=== PATIENT | female | born 1995 | race Caucasian/White ===

== ENCOUNTER 2017-01-21 14:57 | Observation (INO) | payer OTHER ==
[2017-01-21 15:33] LABS: COLOR YELLOW; LEUKOCYTE ESTERASE,URINE 3+ (NEGATIVE); NITRITE,URINE NEGATIVE (NEGATIVE)
[2017-01-21 15:41] LABS: AMORPHOUS PRESENT /hpf (NONE-1+); BACTERIA 2+ /hpf (NONE SEEN); MUCUS 2+ /lpf (NONE-1+)
[2017-01-21 16:34] LABS: % IMMATURE GRANULYOCYTES 0.3 % (0.0-1.1); ABSOLUTE IMMATURE GRANULOCYTES 0.02 10^3/uL (0.00-0.10); ADD DIFF? NO; ADD MORPH? NO; ADD SCAN? NO; ATYPICAL LYMPHOCYTE FLAG 20 (0-99); FRAGMENT RBC FLAG 0 (0-99); HEMATOCRIT 39.4 % (38.0-47.0); HEMOGLOBIN 12.8 g/dL (12.6-16.3); LEFT SHIFT FLG 0 (0-99); LIPEMIA HEMOLYSIS FLAG 80 (0-99); MEAN CELL HEMOGLOBIN CONCENTR. 32.5 g/dL (32.4-36.7); MEAN CELL VOLUME 77.1 fL (81.5-99.8); MEAN PLATELET VOLUME 9.8 fL (8.7-11.7); PLATELET CLUMPS FLAG 20 (0-99); PLATELET COUNT 343 10^3/uL (150-400); RED BLOOD CELL COUNT 5.11 10^6/uL (4.18-5.33); RED CELL DISTRIBUTION WIDTH 15.9 % (11.5-15.2)
[2017-01-21 16:43] LABS: ANION GAP 15 mEq/L (8-16); CALCIUM 10.2 mg/dL (8.5-10.4); CARBON DIOXIDE 23 mEq/l (22-31); CHLORIDE 105 mEq/L (97-110); CREATININE 0.9 mg/dL (0.6-1.0); GLOMERULAR FILTRATION RATE > 60; GLUCOSE 85 mg/dL (70-100); POTASSIUM 3.9 mEq/L (3.5-5.2); SODIUM 143 mEq/L (134-144)
[2017-01-21] MEDS ORDERED: methylPREDNISolone SOD SUCC 125 MG/2 ML VIAL IVP ONE (16:47)
[2017-01-21] MEDS ORDERED: IOPAMIDOL (ISOVUE-300) 100 ML BTL ONE (17:34)
--- NOTE | 2017-01-21 17:39 | EDPHY ---
H & P Smoking Status: Never smoked Time Seen by Provider: 01/21/17 15:31 HPI/ROS: CHIEF COMPLAINT: Abdominal pain HISTORY OF PRESENT ILLNESS: 21-year-old female presents to the emergency department with abdominal pain. The patient was a woken out of her sleep at 4: 00 a.m. 2 days ago. She states that she had generalized abdominal pain and now over the last 24-48 hours it has been more localized in her right lower quadrant. She has never had pain like this in the past. No flank pain. No urinary symptoms. No chest pain or difficulty breathing. No fevers or chills. No reported trauma. REVIEW OF SYSTEMS: Constitutional: No fever, no chills. Eyes: No double or blurry vision. ENT: No sore throat. Respiratory: No cough, no shortness of breath. Cardiac: No chest pain. Gastrointestinal: Abdominal pain as above. No vomiting or diarrhea. Genitourinary: No dysuria. Musculoskeletal: No neck or back pain. Skin: No rashes. Neurological: No headache. (Radha Fox) Past Medical/Surgical History: Negative (Radha Fox) Social History: Single (Radha Fox) Physical Exam: General Appearance: Alert, no distress. Eyes: Pupils equal and round. Extraocular motions are all intact. ENT: Mouth: Mucous membranes moist. Respiratory: No wheezing, rhonchi, or rales, lungs are clear to auscultation. Cardiovascular: Regular rate and rhythm. Gastrointestinal: Abdomen is soft. Tenderness with palpation in the right lower quadrant. There is no rebound, guarding or masses noted. No CVA tenderness bilaterally. Neurological: Alert and oriented x 3, cranial nerves II through XII grossly intact Skin: Warm and dry, no rashes. Musculoskeletal: Nontender to palpate along the cervical, thoracic or lumbar spine. Neck is supple. Extremities: Full range of motion and no peripheral edema. Psychiatric: Patient is oriented X 3, there is no agitation. (Radha Fox) Constitutional: Initial Vital Signs Temperature (C) 37 C 01/21/17 15:10 Heart Rate 97 01/21/17 15:10 Respiratory Rate 18 01/21/17 15:10 Blood Pressure 140/87 H 01/21/17 15:10 O2 Sat (%) 97 01/21/17 15:10 O2 Delivery Mode Room Air Allergies/Adverse Reactions: bacitracin [From Neosporin ([id number])] Allergy (Verified 01/21/17 15:09) cefixime [From Suprax] Allergy (Verified 01/21/17 15:09) cefprozil [From Cefzil] Allergy (Verified 01/21/17 15:09) clarithromycin [From Biaxin] Allergy (Verified 01/21/17 15:09) neomycin [From Neosporin ([id number])] Allergy (Verified 01/21/17 15:09) Penicillins Allergy (Verified 01/21/17 15:09) polymyxin B [From Neosporin ([id number])] Allergy (Verified 01/21/17 15:09) shellfish derived Allergy (Verified 01/21/17 15:09) sulfacetamide [From Sulfamide] Allergy (Verified 01/21/17 15:09) Home Medications: Medication Instructions Recorded Control 01/21/17 Zyrtec 01/21/17 Medical Decision Making - Diagnostics Imaging Results: Imaging Impressions Abdomen CT 01/21/17 17:29 Impression: Acute appendicitis. Results called to Dr. De Dios at 6:00 PM. ED Course/Re-evaluation: 21-year-old female presents to the emergency department by private vehicle with abdominal pain. The patient has pain overlying McBurney's point. Is concerned about possible acute appendicitis. I doubt ovarian cysts or ovarian torsion. Patient takes oral contraceptive pills. Her pain is not in her lower pelvic region. I discussed pros and cons of CT scan versus ultrasound she agrees with CT scan. CT scan of the abdomen pelvis pending. Patient has numerous medication allergies. She requested premedication with Benadryl and steroids prior to IV contrast. She has a history of shellfish allergy. I spoke with Dr. Hudson Crystal, radiologist, as well who stated that her shellfish allergy is not statistically significant with respect to contrast dye. Patient was given 50 mg of IV Benadryl and 125 mg of IV Solu-Medrol and waited 30 min prior to having CT scan with IV contrast. CT scan reveals acute appendicitis. I spoke with Dr. Yovany Hamilton, on-call surgeon, who also came to evaluate the patient. Patient was kept NPO. Dr. Hamilton will discuss using IV Invanz with the patient given her numerous allergies. (Juliette Foxrina Marianne) Patient has been seen by Dr. Hamilton. She was given Benadryl and Solu-Medrol prior to her CT scan because of IV contrast. The patient has numerous medication allergies however they really cause rash not anaphylaxis. She had no problems with the CT scan and IV contrast after the Benadryl and steroids. We will give her Invanz is antibiotic. She will then go to the operating room for appendectomy (Dev De Dios) Differential Diagnosis: Including but not limited to acute appendicitis, urinary tract infection, pyelonephritis, kidney stone (Radha Fox) I considered appendicitis as well as other causes of right lower quadrant pain including ovarian cyst, , urinary tract infection. I have also considered patient may have significant allergic reaction IV contrast as as antibiotics. However she has been treated with Benadryl and Solu-Medrol. ( Dev De Dios) - Data Points Laboratory Results: Laboratory Results 01/21/17 15:45 01/21/17 15:45 01/21/17 01/21/17 01/21/17 15:45 15:45 15:15 WBC 7.82 10^3/uL 10^3/uL (3.80-9.50) RBC 5.11 10^6/uL 10^6/uL (4.18-5.33) Hgb 12.8 g/dL g/dL (12.6-16.3) Hct 39.4 % % (38.0-47.0) MCV 77.1 fL L fL (81.5-99.8) MCH 25.0 pg L pg (27.9-34.1) MCHC 32.5 g/dL g/dL (32.4-36.7) RDW 15.9 % H % (11.5-15.2) Plt Count 343 10^3/uL 10^3/uL (150-400) MPV 9.8 fL fL (8.7-11.7) Neut % (Auto) 60.9 % % (39.3-74.2) Lymph % (Auto) 31.3 % % (15.0-45.0) [place] % (Auto) 6.5 % % (4.5-13.0) Eos % (Auto) 0.6 % % (0.6-7.6) Baso % (Auto) 0.4 % % (0.3-1.7) Nucleat RBC Rel Count 0.0 % % (0.0-0.2) Absolute Neuts (auto) 4.76 10^3/uL 10^3/uL (1.70-6.50) Absolute Lymphs (auto) 2.45 10^3/uL 10^3/uL (1.00-3.00) Absolute Monos (auto) 0.51 10^3/uL 10^3/uL (0.30-0.80) Absolute Eos (auto) 0.05 10^3/uL 10^3/uL (0.03-0.40) Absolute Basos (auto) 0.03 10^3/uL 10^3/uL (0.02-0.10) Absolute Nucleated RBC 0.00 10^3/uL 10^3/uL (0-0.01) Immature Gran % 0.3 % % (0.0-1.1) Immature Gran # 0.02 10^3/uL 10^3/uL (0.00-0.10) Sodium 143 mEq/L mEq/L (134-144) Potassium 3.9 mEq/L mEq/L (3.5-5.2) Chloride 105 mEq/L mEq/L (97-110) Carbon Dioxide 23 mEq/l mEq/l (22-31) Anion Gap 15 mEq/L mEq/L (8-16) BUN 11 mg/dL mg/dL (7-23) Creatinine 0.9 mg/dL mg/dL (0.6-1.0) Estimated GFR > 60 Glucose 85 mg/dL mg/dL (70-100) Calcium 10.2 mg/dL mg/dL (8.5-10.4) Urine Color YELLOW Urine Appearance TURBID Urine pH 9.0 H (5.0-7.5) Ur Specific [place] 1.020 (1.002-1.030) Urine Protein 1+ H (NEGATIVE) Urine Ketones NEGATIVE (NEGATIVE) Urine Blood NEGATIVE (NEGATIVE) Urine Nitrate NEGATIVE (NEGATIVE) Urine Bilirubin NEGATIVE (NEGATIVE) Urine Urobilinogen NEGATIVE EU EU (0.2-1.0) Ur Leukocyte Esterase 3+ H (NEGATIVE) Urine RBC 1-3 /hpf /hpf (0-3) Urine WBC 10-15 /hpf H /hpf (0-3) Ur Epithelial Cells 2+ /lpf H /lpf (NONE-1+) Amorphous Sediment PRESENT /hpf /hpf (NONE-1+) Urine Bacteria 2+ /hpf H /hpf (NONE SEEN) Hyaline Casts 5-15 /lpf /lpf (0-1) Urine Mucus 2+ /lpf H /lpf (NONE-1+) Urine Glucose NEGATIVE (NEGATIVE) Urine Test 01/21/17 15:10 WBC RBC Hgb Hct MCV MCH MCHC RDW Plt Count MPV Neut % (Auto) Lymph % (Auto) [place] % (Auto) Eos % (Auto) Baso % (Auto) Nucleat RBC Rel Count Absolute Neuts (auto) Absolute Lymphs (auto) Absolute Monos (auto) Absolute Eos (auto) Absolute Basos (auto) Absolute Nucleated RBC Immature Gran % Immature Gran # Sodium Potassium Chloride Carbon Dioxide Anion Gap BUN Creatinine Estimated GFR Glucose Calcium Urine Color Urine Appearance Urine pH Ur Specific [place] Urine Protein Urine Ketones Urine Blood Urine Nitrate Urine Bilirubin Urine Urobilinogen Ur Leukocyte Esterase Urine RBC Urine WBC Ur Epithelial Cells Amorphous Sediment Urine Bacteria Hyaline Casts Urine Mucus Urine Glucose Urine Test NEGATIVE Medications Given: Discontinued Medications Diphenhydramine HCl (Benadryl Injection) 50 mg IVP EDNOW ONE Stop: 01/21/17 16:44 Last Admin: 01/21/17 16:52 Dose: 50 mg Sodium Chloride (Ns) 1,000 mls @ 0 mls/hr IV ONCE ONE PRN Reason: Wide Open Stop: 01/21/17 18:14 Last Admin: 01/21/17 18:22 Dose: 1,000 mls Methylprednisolone Sodium Succinate (Solu-Medrol) 125 mg IVP EDNOW ONE Stop: 01/21/17 16:48 Last Admin: 01/21/17 16:58 Dose: 125 mg Departure - Departure Disposition: To OP Cath/Surgery Clinical Impression: Acute appendicitis Qualifiers: Acute appendicitis type: with localized peritonitis Qualified Code(s): K35.3 - Acute appendicitis with localized peritonitis Condition: Good
[2017-01-21] MEDS ORDERED: NS 1,000 ML IV ONE (18:13)
[2017-01-21] MEDS ORDERED: ERTAPENEM 1 GM VIAL IVP ONE (19:09)
--- NOTE | 2017-01-21 19:52 | PDANEPAE ---
ANE History of Present Illness 21 yo female with abd pain since this AM. ANE Past Medical History - Cardiovascular History Hx Hypertension: No Hx Arrhythmias: No - Pulmonary History Hx COPD: No Hx Asthma/Reactive Airway Disease: No Hx Recent Upper Respiratory Infection: No Hx Oxygen in Use at Home: No Hx Sleep Apnea: No - Endocrine History Hx Diabetes: No Hypothyroid: No Obesity: no - Renal History Hx Renal Disorders: No - Liver History Hx Hepatic Disorders: No - GI History Hx Gastrointestinal Disorders: No ANE Review of Systems Review of systems is: negative Review of Systems: - Systems Respiratory: Reports: no symptoms Gastrointestinal: Reports: abdominal pain, diarrhea ANE Patient History - Allergies Allergies/Adverse Reactions: bacitracin [From Neosporin ([id number])] Allergy (Verified 01/21/17 15:09) cefixime [From Suprax] Allergy (Verified 01/21/17 15:09) cefprozil [From Cefzil] Allergy (Verified 01/21/17 15:09) clarithromycin [From Biaxin] Allergy (Verified 01/21/17 15:09) neomycin [From Neosporin ([id number]-[id number])] Allergy (Verified 01/21/17 15:09) Penicillins Allergy (Verified 01/21/17 15:09) polymyxin B [From Neosporin ([id number]-obm-[id number])] Allergy (Verified 01/21/17 15:09) shellfish derived Allergy (Verified 01/21/17 15:09) sulfacetamide [From Sulfamide] Allergy (Verified 01/21/17 15:09) - Home Medications Home medications: home medication list seen and reviewed Home Medications: Cetirizine [ZyrTEC 10 mg (*)] 10 mg PO HS 01/21/17 [Last Taken 01/20/17 22:00] Ethinyl Estradiol/Drospirenone [Megan Tablet] 1 tab PO DAILY 01/21/17 [Last Taken 01/21/17] - NPO status NPO Since - Liquids (Date): 01/21/17 NPO Since - Liquids (Time): 10:30 NPO Since - Solids (Date): 01/21/17 NPO Since - Solids (Time): 10:30 - Anes Hx Anes Hx: post operative nausea and vomiting - Smoking Hx Smoking Status: Never smoked ANE Labs/Vital Signs - Labs Result Diagrams: 01/21/17 15:45 01/21/17 15:45 - Vital Signs Blood Pressure: 129/79 Heart Rate: 104 Respiratory Rate: 18 O2 Sat (%): 98 Height: 162.56 cm Weight: 67.132 kg ANE Physical Exam - Airway Neck exam: FROM Mallampati Score: Class 2 - Pulmonary Pulmonary: clear to auscultation - Cardiovascular Cardiovascular: systolic murmur, tachycardia - ASA Status ASA Status: II, E ANE Anesthesia Plan Anesthesia Plan: general endotracheal anesthesia
[2017-01-21] MEDS ORDERED: fentaNYL 100 MCG/2 ML INJ ONE ×2 (19:56→19:57)
[2017-01-21] MEDS ORDERED: PROPOFOL/EMULSION 500 MG/50 ML BOTTLE IV ONE (19:57)
--- NOTE | 2017-01-21 20:04 | GHP ---
[f rep st] PREOP HISTORY AND PHYSICAL DATE OF ADMISSION: 01/21/2017 ADMITTING DIAGNOSIS: Acute appendicitis. HISTORY OF PRESENT ILLNESS: The patient is a 21-year-old college student who had cereal for dinner on , and then at 4:00 a.m. Sunday morning had the onset of a bandlike abdominal pain that went across her upper abdomen and across her lower abdomen. This was augmented with nausea. She did have one soft stool at that point, but that did not change her abdominal discomfort. Later on Sunday morning, she had no appetite and did not eat. She had an uncomfortable day and then that night (Sunday) she was able to sleep. On Sunday, she was able to eat. Her pain was better. She was complaining of constipation. She was able to sleep last night. She was able to eat today and had diarrhea today, but the pain became increasingly worse. This prompted her visit to the emergency department. The pain had shifted to the right lower quadrant. She has not had a recent upper respiratory tract infection or diarrhea aside from today. She has had no prior abdominal surgery. She had one somewhat similar episode that lasted 3 hours several years ago. She did travel to [facility] in June. She did have Zithromax 2 months ago for a sore throat, which was strep test negative. It did lead to improvement of her oropharynx. There is no history of inflammatory bowel disease. PAST MEDICAL HISTORY: She does not use tobacco products. She drinks very rarely. ALLERGIES: To multiple antibiotics, the most important of which is sulfa. She has had a Grover Shahab type reaction to sulfa. She is allergic to other antibiotics, as manifested by a rash, and they include bacitracin, Suprax, Cefzil, Biaxin, bacitracin and polymyxin B. CURRENT MEDICATIONS: Include an oral contraceptive and Zyrtec for seasonal allergies. PAST SURGICAL HISTORY: Surgeries have included myringotomy tubes x2. She has had adenoids removed. She has had a breast reduction. She had an upper endoscopy in 2014 for what sounds like reflux. She has had wisdom tooth extraction. There is no history of rheumatic fever, tuberculosis, hepatitis, or transfusions. REVIEW OF SYSTEMS: She is lactose intolerant. She had a Medrol Dosepak in October and November of this year for hand swelling. There are no limits on her activities. PHYSICAL EXAMINATION: GENERAL: She is pleasant, awake, and alert. NEUROLOGIC: There are no focal lateralizing neurologic findings. LYMPH NODES: There is no cervical, supraclavicular, axillary or inguinal lymphadenopathy. NECK: Her thyroid is not enlarged. No carotid bruits. LUNGS: Clear to auscultation. CARDIAC: Shows S1, S2 to be normal with normal split of S2 without murmurs, rubs, or gallops. ABDOMEN: Shows hypoactive bowel sounds. Psoas and obturator signs are negative. She is tender with cough at about a 3 just below McBurney's point. To palpation on a scale of 1-10, her pain is 2 in the left upper quadrant, 5 in the left mid abdomen, 6 in the left lower quadrant, 2 in the epigastrium, 2 in the periumbilical region, 2 in the suprapubic region, 2 in the right upper quadrant, 5 in the right mid abdomen, and 8 in the left lower quadrant. VITAL SIGNS: Show a temperature of 36.4. Her blood pressure is 143/90, heart rate 108. LABORATORY DATA: Her white blood cell count is 7.8 with 60% neutrophils. She has a low mean corpuscular volume at 77. Her sodium is 143; potassium is 3.9; calcium is 102. Her urine test is negative. Her urine shows 10-15 white cells per high-power field. Her specific gravity is 1.020. Her CT certainly shows an appendix with a thickened wall, but minimal stranding is noted. PLAN: Options for her include antibiotic therapy. With her multiple reactions to antibiotics, a long course of antibiotics may be problematic. I feel the most straightforward answer will be to proceed with a laparoscopic appendectomy. I have discussed the pros and cons with the patient and her mother. They have agreed to proceed with an appendectomy. /[id number]/MODL MTDD
[2017-01-21] MEDS ORDERED: ONDANSETRON 4 MG/2 ML VIAL IVP PRN (20:05)
[2017-01-21] MEDS ORDERED: LR 1,000 ML IV SCH (20:30)
[2017-01-21] MEDS ORDERED: ONDANSETRON 4 MG/2 ML VIAL ONE (20:36)
[2017-01-21] MEDS ORDERED: LIDOCAINE 2% 5 ML SDV ONE (20:36)
[2017-01-21] MEDS ORDERED: KETOROLAC 30 MG/1 ML SDV ONE (20:36)
[2017-01-21] MEDS ORDERED: DEXAMETHASONE 4 MG/ML VIAL ONE ×2 (20:36)
[2017-01-21] MEDS ORDERED: ROCURONIUM 50 MG/5 ML VIAL ONE (20:36)
[2017-01-21] MEDS ORDERED: ACETAMINOPHEN 500 MG TAB PO PRN (20:52)
[2017-01-21] MEDS ORDERED: HYDROCODONE/APAP 5/325 TAB PO PRN (20:52)
[2017-01-21] MEDS ORDERED: fentaNYL 100 MCG/2 ML INJ IVP PRN (20:52)
[2017-01-21] MEDS ORDERED: ALBUTEROL 3 ML DEYVIAL IH PRN (20:52)
[2017-01-21] MEDS ORDERED: PROMETHAZINE HCL 25 MG/ML INJ IVP PRN (20:52)
[2017-01-21] MEDS ORDERED: NALOXONE HCL 0.4 MG/ML INJ IVP PRN (20:52)
[2017-01-21] MEDS ORDERED: GLYCOPYRROLATE 0.2 MG/1 ML VIAL ONE (20:55)
[2017-01-21] MEDS ORDERED: CETIRIZINE 10 MG TAB PO SCH (21:00)
--- NOTE | 2017-01-21 21:19 | POSTOPPROG ---
Post Op Note Date of Operation: 01/21/17 Surgeon: Yovany Hamilton Anesthesia: GET(General Endotracheal) Pre-op Diagnosis: acute appendicitis Post-op Diagnosis: acute unruptured appendicitis Indication: acute appendicitis Procedure: laparoscopic appendectomy Findings: acute unruptured appendicitis Inf/Abcess present in the surg proc area at time of surgery?: No EBL: Minimal Total fluids administered: 1350 Complications: none Specimen(s): appendix
--- NOTE | 2017-01-21 21:33 | POSTANESTH ---
Post Anesthetic Evaluation Cardiovascular Status: Normal, Stable Respiratory Status: Normal, Stable Level of Consciousness/Mental Status: Can Participate in Eval, Mildly Sleepy, Arousable Pain Control: Adequate, Prn Tx Ordered Nausea/Vomiting Control: Adequate, Prn Tx Ordered Complications Possibly Related to Anesthesia: None Noted
[2017-01-21] MEDS: ACETAMINOPHEN 500 MG TAB PO SCH (22:13)
[2017-01-21] MEDS: HYDROmorphone HCL/NS/PF 0.4 MG/2 ML SYR IVP PRN ×2 (22:37→23:47)
--- NOTE | 2017-01-21 22:54 | GOP ---
[f rep st] OPERATIVE REPORT DATE OF OPERATION: 01/21/2017 SURGEON: Yovany Hamilton MD PREOPERATIVE DIAGNOSIS: Acute appendicitis. POSTOPERATIVE DIAGNOSIS: Acute unruptured appendicitis. PROCEDURE PERFORMED: Laparoscopic appendectomy. FINDINGS: Acute unruptured appendicitis. SPECIMENS: Appendix. ESTIMATED BLOOD LOSS: Minimal. INDICATIONS: Acute appendicitis. DESCRIPTION OF PROCEDURE: The patient was placed on the operating table in supine position. After induction of adequate general endotracheal anesthesia, the abdomen was carefully clipped, prepped, and draped. A surgical time-out was carried out and agreed to by all members of the operative team. An oblique left lower quadrant 5 mm incision and a transverse suprapubic 5 mm incision were both made and deepened with Bovie electrocautery. The umbilicus was carefully elevated at its cephalad rim with an Allis clamp. A curvilinear incision was made in the inferior umbilical fold. This was deepened with Bovie electrocautery and then blunt dissection. The anterior rectus sheath when exposed was elevated between Allises. It was divided in the midline. A pursestring of 0 PDS was placed in the fascia level. The peritoneum was entered. An 11-12 mm disposable Vincent trocar was positioned, and intraabdominal insufflation was carried out to 15 mmHg. A 5 mm left lower quadrant port and a 5 mm suprapubic port were now placed under direct vision. Photographic documentation was carried out. There were no inguinal hernias. Right and left ovaries were unremarkable. The fluid in the pelvis was yellow and translucent. The appendix was found in the right lower quadrant. It was carefully elevated at its junction with the cecum. It was taken down in a retrograde manner using a Harmonic scalpel. Once the appendix had been freed to its tip, it was elevated and transected, taking a cuff of cecum, using a vascular load on 35 mm Endo-CHRISSY stapler. The specimen was placed in an EndoCatch bag and delivered through the umbilical port trocar. Irrigation was then carried out with heparin and Ancef-containing irrigant. Copious irrigation was used. There was 1 small bleeding point on the staple line of the cecum. This was carefully elevated and occluded with an Endoloop. This provided excellent hemostasis. The small bowel was carefully run for a distance of 3 feet. There were several scattered mesenteric nodes identified. There was no evidence of Meckel's diverticulitis. Ports were removed under direct vision. Pneumoperitoneum was released. An Allis clamp was placed on the right rectus sheath, and a simple suture was placed through and through. Allis was now placed on the left rectus sheath at the infraumbilical incision at this midpoint, and again, the suture was passed. The pursestring was first tied, and the second suture was then tied. Hemostasis was found to be excellent. Interrupted inverted simple sutures of 4-0 Vicryl were used to close the skin at all 3 sites. Dermabond was used. The patient tolerated the procedure well and was transferred to recovery in stable and satisfactory condition. COMPLICATIONS: None. /[id number]/MODL MTDD
[2017-01-22] MEDS: HYDROmorphone HCL/NS/PF 0.4 MG/2 ML SYR IVP PRN ×4 (01:21→09:19)
[2017-01-22] MEDS: KETOROLAC 30 MG/1 ML SDV IVP SCH ×2 (03:27→09:19)
[2017-01-22] MEDS: ACETAMINOPHEN 500 MG TAB PO SCH ×2 (06:41→14:15)
[2017-01-22] MEDS ORDERED: ETHINYL ESTRADIOL PO SCH (09:00)
[2017-01-22] MEDS ORDERED: DROSPIRENONE PO SCH (09:00)
--- NOTE | 2017-01-22 10:08 | SOAPPROG ---
SOAP Progress Note Assessment/Plan: POD#1 01/22/17 10:06 Assessment: doing well. Plan: probably home today Subjective: no complaints Objective: Vital Signs Temp Pulse Resp BP Pulse Ox 36.7 C 60 17 95/53 L 94 01/22/17 09:40 01/22/17 09:40 01/22/17 09:40 01/22/17 09:40 01/22/17 09:40 01/21/17 01/22/17 01/23/17 05:59 05:59 05:59 Intake Total 2600 Output Total 14 Balance 2586 - Time Spent With Patient Time Spent With Patient: 15 Physical Exam - Physical Exam General Appearance: WD/WN, alert, no apparent distress EENT: normal ENT inspection Neck: non-tender, full range of motion, supple Respiratory: chest non-tender, lungs clear, normal breath sounds Cardiac/Chest: regular rate, rhythm Abdomen: normal bowel sounds, non-tender, soft, other (Incisions clean and dry) Pelvic Exam: deferred Rectal: deferred Back: Normal inspection Skin: normal color, warm/dry Neuro/Psych: no motor/sensory deficits, alert, normal mood/affect, oriented x 3 ICD10 Worksheet Patient Problems: Problems Problem Status Onset Acute appendicitis Acute
[2017-01-22 12:37] VITALS: BP 85/49; PULSE 83; RESP 16; TEMP 98; O2SAT 97
--- NOTE | 2017-01-22 14:36 | GDS ---
[f rep st] DISCHARGE SUMMARY DISCHARGE DIAGNOSIS: Acute unruptured appendicitis. PROCEDURE PERFORMED: Laparoscopic appendectomy. CONDITION AT DISCHARGE: Improved. DISPOSITION: Home. DIET: Unrestricted, although I suggest she avoid constipating foods, such as bananas, rice, applesauce, and cheese. I have also suggested that she take a multivitamin with zinc, copper, and C daily for the next 3 weeks. ACTIVITY: Her activity is limited to lifting less than 10 pound for 3 weeks. She is to shower only. She is to watch for signs of infection, and those would: 1. Superficial--swelling, warmth, tenderness, or redness. 2. Deep 10--malaise, decreased appetite, fevers, chills, abdominal pain. MEDICATIONS AT DISCHARGE: She will use Tylenol 1000 mg every 8 hours routinely. She will take Toradol 10 mg p.o. q.6 hours routinely. She will augment that as needed with Dilaudid 2 mg 1 p.o. q.4 hours p.r.n. pain. She will continue her Zyrtec. She will continue her oral contraceptive (Megan). She has been cautioned about making sure she has extra protection for this month. Her MCV is low, and she is cautioned to follow up with her family doctor regarding that issue. She did well with surgery last evening. She is doing nicely today. I am waiting to see that she can take a regular diet without difficulty, and if that is the case, she will be dismissed this afternoon. /[id number]/MODL MTDD
== END 2017-01-22 14:31 | disposition home or self-care (01) ==
LOC: FOB 22:15
PROVIDERS: ADMIT Surgery; ATTEND Surgery
PROC: 0DTJ4ZZ Resection of Appendix, Percutaneous Endoscopic Approach (ICD-10-PCS; principal; 2017-01-21 19:45)
DX: K35.80 Unspecified acute appendicitis (principal)
CPT/HCPCS: 44970; 74177; 96361; 96374; 96375; 99285; G0378; J1100; J1170; J1200; J1335; J1885; J2405; J2704; J2930; J3010; Q9967